=== PATIENT | male | born 1975 | race American Indian/Alaskan Native ===

== ENCOUNTER 2016-09-23 11:56 | Emergency (ER) | payer OTHER ==
[2016-09-23 12:07] VITALS: TEMP 98.7
[2016-09-23 12:08] VITALS: BMI 33.2
--- NOTE | 2016-09-23 12:44 | ED PDOC ---
HPI: Chest Pain Time Seen by Provider: 09/23/16 12:28 Chief Complaint (Nursing): Chest Pain Chief Complaint (Provider): Chest Pain History Per: Patient History/Exam Limitations: no limitations Onset/Duration Of Symptoms: Mins Current Symptoms Are (Timing): Better Severity: Moderate Quality: Pressure, "Pain" Associated Symptoms: Dyspnea Modifying Factors: None Exacerbating Factors: None Alleviating Factors: None Additional Complaint(s): Patient is a 40 year old male with a history of PTSD, presents to ED for evaluation of left sided chest pain that began 1hour TOE [employer] STITCHDOWNS and resolved after 40 minutes. Patient states pain occurred while taking a shower associated with SOB , dizziness and pain to the left arm and leg. Patient denies nausea. Patient also reports that he felt like his heart was racing. Patient states similar pain in April 2016, admitted for 24 hour observation but admits that he was under the influence of alcohol and cocaine at that time. Denies drug use for 2 months. Past Medical History Reviewed: Historical Data, Nursing Documentation, Vital Signs Vital Signs: Last Vital Signs Temp 98.7 F 09/23/16 12:06 Pulse 79 09/23/16 16:23 Resp 16 09/23/16 16:23 BP 118/80 09/23/16 16:23 Pulse Ox 100 09/23/16 16:23 - Medical History PMH: Anxiety, Depression, Post Traumatic Stress Disorder Denies: Diabetes, Hepatitis, HIV, HTN, Chronic Kidney Disease, Seizures, Sexually Transmitted Disease - Surgical History Surgical History: Appendectomy - Family History Family History: States: Unknown Family Hx - Living Arrangements Living Arrangements: With Family - Social History Current smoker - smoking cessation education provided: Yes Alcohol: None Drugs: Denies - Immunization History Hx Tetanus Toxoid Vaccination: No Hx Influenza Vaccination: No Hx Pneumococcal Vaccination: No - Home Medications Home Medications: Ambulatory Orders Medication Instructions Recorded No Known Home Med 07/24/15 - Allergies Allergies/Adverse Reactions: Allergies Allergy/AdvReac Type Severity Reaction Status Date / Time No Known Allergies Allergy Verified 09/23/16 12:27 Review of Systems ROS Statement: Except As Marked, All Systems Reviewed And Found Negative Constitutional: Negative for: Fever, Weakness Eyes: Negative for: Vision Change Cardiovascular: Positive for: Chest Pain, Palpitations, Light Headedness Respiratory: Positive for: Shortness of Breath Gastrointestinal: Negative for: Nausea, Vomiting Musculoskeletal: Negative for: Neck Pain, Back Pain Skin: Negative for: Rash Neurological: Negative for: Weakness Physical Exam - Reviewed Nursing Documentation Reviewed: Yes Vital Signs Reviewed: Yes - Physical Exam Appears: Positive for: Non-toxic, No Acute Distress Skin: Positive for: Normal Color, Warm Eye Exam: Positive for: Normal appearance Neck: Positive for: Normal, Painless ROM Cardiovascular/Chest: Positive for: Regular Rate, Rhythm. Negative for: JVD, Murmur Respiratory: Positive for: Normal Breath Sounds. Negative for: Respiratory Distress Back: Positive for: Normal Inspection Extremity: Positive for: Normal ROM. Negative for: Pedal Edema, Calf Tenderness Neurologic/Psych: Positive for: Alert, Oriented - Laboratory Results Result Diagrams: 09/23/16 12:55 09/23/16 12:55 - ECG ECG Rhythm: Positive for: Normal QRS O2 Sat by Pulse Oximetry: 96 (RA) Pulse Ox Interpretation: Normal Medical Decision Making Medical Decision Making: Time: 1245 Initial impression: Chest pain r/o ACS Initial plan: -- EKG -- CMP -- UDS -- Troponin -- CBC -- CXR -- ASA and NSF -- Cardiac monitoring Scribe Attestation: Documented by Hillary Pineda acting as a scribe for Paulette Farfan MD MD Scribe Attestation: All medical record entries made by the Scribe were at my direction and personally dictated by me. I have reviewed the chart and agree that the record accurately reflects my personal performance of the history, physical exam, medical decision making, and the department course for this patient. I have also personally directed, reviewed, and agree with the discharge instructions and disposition. 5.00p - patient h/o chest pain not consistent with cardiac pain. He has had similar pain in April. He was admitted to observation and was discharged. He did not followup in the outpatient. Patient was showering when the pain started. He has a h/o PTSD and panic attacks. He has been asymptomatic Disposition - Clinical Impression Clinical Impression: Chest pain - Patient ED Disposition Is Patient to be Admitted: No Doctor Will See Patient In The: Office Counseled Patient/Family Regarding: Diagnosis, Need For Followup - Disposition Referrals: [facility] [Outside] [facility] [Outside] [facility] [Outside] Disposition: Routine/Home Disposition Time: 16:57 Condition: STABLE Instructions: Chest Pain (ED) - POA Present On Arrival: None
[2016-09-23] MEDS ORDERED: Sodium Chloride 0.9% 1,000 ML IV SCH (13:00)
[2016-09-23 13:20] LABS: BASO # 0.1 K/uL (0.0-0.2); BASO % 0.9 % (0.0-2.0); EOS # 0.1 K/uL (0.0-0.7); EOS % 1.4 % (0.0-4.0); HEMATOCRIT 43.1 % (35.0-51.0); LYMPH # 1.2 K/uL (1.0-4.3); LYMPH % 15.9 % (20.0-40.0); MEAN CELL VOLUME 92.9 fl (80.0-94.0); MEAN CORPUSCULAR HEMOGLOBIN 30.4 pg (27.0-31.0); MEAN CORPUSCULAR HGB CONC 32.7 g/dL (33.0-37.0); MEAN PLATELET VOLUME 6.9 fl (7.2-11.7); MONO # 0.7 K/uL (0.0-0.8); MONO % 8.4 % (0.0-10.0); NEUT # 5.7 K/uL (1.8-7.0); NEUT % 73.4 % (50.0-75.0); NRBC % 0.1 % (0.0-0.0); RED CELL DISTRIBUTION WIDTH 13.7 % (11.5-14.5); WHITE BLOOD COUNT 7.8 K/uL (4.8-10.8)
[2016-09-23 13:32] LABS: ALB/GLOB RATIO 1.4 (1.0-2.1); ALKALINE PHOSPHATASE 46 U/L (38-126); ALT/SGPT 35 U/L (21-72); AST/SGOT 19 U/L (17-59); BILIRUBIN,TOTAL 0.3 mg/dl (0.2-1.3); BLOOD UREA NITROGEN 14 mg/dl (9-20); CALCIUM 9.8 mg/dL (8.4-10.2); CARBON DIOXIDE 27 mmol/L (22-30); CHLORIDE 106 mmol/L (98-107); GFR AFRICAN-AMERICAN > 60; GLUCOSE,RANDOM 99 mg/dL (75-110); POTASSIUM 4.5 MMOL/L (3.6-5.0); SODIUM 143 mmol/l (132-148); TOTAL PROTEIN 7.3 G/DL (6.3-8.2)
--- NOTE | 2016-09-23 13:37 | RAD ---
HISTORY: chest pain COMPARISON: Chest x-ray performed 04/05/16 TECHNIQUE: Chest PA and lateral FINDINGS: LUNGS: No focal consolidation. Please note that chest x-ray has limited sensitivity for the detection of pulmonary masses. PLEURA: No significant pleural effusion identified. No definite pneumothorax . CARDIOVASCULAR: The cardiomediastinal silhouette appears within normal limits of size. OSSEOUS STRUCTURES: No acute osseous abnormality identified. VISUALIZED UPPER ABDOMEN: Unremarkable. OTHER FINDINGS: None. IMPRESSION: No focal consolidation, significant pleural effusion, or definite pneumothorax identified.
[2016-09-23 16:24] VITALS: BP 118/80; PULSE 79; RESP 16
[2016-09-23 17:01] VITALS: O2SAT 96
--- NOTE | 2016-09-24 10:57 | CARD ---
APPROVED REPORT EKG Measurement Heart [id number] <Conclusion> Normal sinus rhythm normal ECG
== END 2016-09-23 17:22 | disposition home or self-care (01) ==
LOC: H.ER 11:56
DX: R07.9 Chest pain, unspecified (principal); F43.10 Post-traumatic stress disorder, unspecified; F41.9 Anxiety disorder, unspecified

== ENCOUNTER 2016-10-30 19:51 | Emergency (ER) | payer SELFPAY ==
[2016-10-30 19:52] VITALS: BMI 33.2
[2016-10-30 20:08] VITALS: RESP 16; TEMP 98.5
--- NOTE | 2016-10-30 20:50 | ED PDOC ---
HPI: Chest Pain Time Seen by Provider: 10/30/16 20:41 Chief Complaint (Nursing): Abdominal Pain Chief Complaint (Provider): CP History Per: Patient Additional Complaint(s): 41 yo male, no PMH, presents to ED with complaints of chest pain, shortness of breath, chest tightness and upper extremity paresthesias that developed after he was screaming at his kids around 17:30. Pt reports that the episode lasted ~ 20 minutes. No chest pain or SOB at this time. Past Medical History Reviewed: Nursing Documentation, Vital Signs Vital Signs: Last Vital Signs Temp 98.5 F 10/30/16 20:04 Pulse 76 10/30/16 21:08 Resp 16 10/30/16 21:08 BP 155/87 H 10/30/16 21:08 Pulse Ox 100 10/30/16 21:08 - Medical History PMH: Anxiety, Depression, Post Traumatic Stress Disorder Denies: Diabetes, Hepatitis, HIV, HTN, Chronic Kidney Disease, Seizures, Sexually Transmitted Disease - Surgical History Surgical History: Appendectomy - Family History Family History: States: Unknown Family Hx - Immunization History Hx Tetanus Toxoid Vaccination: No Hx Influenza Vaccination: No Hx Pneumococcal Vaccination: No - Home Medications Home Medications: Ambulatory Orders Medication Instructions Recorded No Known Home Med 07/24/15 - Allergies Allergies/Adverse Reactions: Allergies Allergy/AdvReac Type Severity Reaction Status Date / Time No Known Allergies Allergy Verified 09/23/16 12:27 CATHY Risk Score for UA/NSTEMI - CATHY Risk Score Age > 64: NO 3 or more CAD Risk Factors: NO Known CAD (Stenosis greater than 50%): NO Aspirin use in past 7 days: NO Severe Angina: NO EKG ST changes greater than 0.5mm: NO Positive Cardiac Marker: NO CATHY Score: 0 Risk %: 5% Wells Criteria for PE - Wells Criteria for Pulmonary Embolism Clinical Signs and Symptoms of DVT: No P.E is #1 Diagnosis, or Equally Likely: No Heart Rate >100: No Immobilization at least 3 days;Surgery previous 4 weeks: No Previous, objectively diagnosed PE or DVT: No Hemoptysis: No Malignancy w/treatment within 6 months, or palliative: No Total Score: 0 Review of Systems ROS Statement: Except As Marked, All Systems Reviewed And Found Negative Cardiovascular: Positive for: Chest Pain Respiratory: Positive for: Shortness of Breath Physical Exam - Reviewed Nursing Documentation Reviewed: Yes Vital Signs Reviewed: Yes - Physical Exam Appears: Positive for: Well, Non-toxic, No Acute Distress Head Exam: Positive for: ATRAUMATIC, NORMAL INSPECTION, NORMOCEPHALIC Skin: Positive for: Normal Color, Warm, DRY Eye Exam: Positive for: EOMI, Normal appearance, PERRL ENT: Positive for: Normal ENT Inspection Neck: Positive for: Normal, Painless ROM Cardiovascular/Chest: Positive for: Regular Rate, Rhythm Respiratory: Positive for: CNT, Normal Breath Sounds Gastrointestinal/Abdominal: Positive for: Normal Exam, Bowel Sounds, Soft Back: Positive for: Normal Inspection Extremity: Positive for: Normal ROM Neurologic/Psych: Positive for: Alert, Oriented - Laboratory Results Result Diagrams: 10/30/16 21:00 10/30/16 21:00 - ECG O2 Sat by Pulse Oximetry: 98 Medical Decision Making Medical Decision Making: EKG: NSR at 80 bpm, no axis deviation, no acute ST changes, as read by BRENNA Ibarra placed on patient monitor, vitals stable. Labs resulted and re-reviewed with Pt who demonstrated full understanding Pt doing well on re-eval, no complaint sof chest pain, SOB, or upper extremity paresthesias. Disposition - Clinical Impression Clinical Impression: Chest pain, Panic attack - Patient ED Disposition Is Patient to be Admitted: No - Disposition Disposition: Routine/Home Disposition Time: 23:00 Condition: STABLE Instructions: Panic Attack (ED) - POA Present On Arrival: None
[2016-10-30 21:08] VITALS: BP 155/87; PULSE 76
[2016-10-30 21:12] LABS: BASO # 0.1 K/uL (0.0-0.2); BASO % 0.8 % (0.0-2.0); EOS # 0.1 K/uL (0.0-0.7); LYMPH # 1.6 K/uL (1.0-4.3); MEAN CELL VOLUME 91.2 fl (80.0-94.0); MEAN CORPUSCULAR HEMOGLOBIN 30.8 pg (27.0-31.0); MEAN CORPUSCULAR HGB CONC 33.8 g/dL (33.0-37.0); MEAN PLATELET VOLUME 6.7 fl (7.2-11.7); MONO # 0.8 K/uL (0.0-0.8); NEUT # 6.3 K/uL (1.8-7.0); NEUT % 71.2 % (50.0-75.0); NRBC % 0.1 % (0.0-0.0); RED CELL DISTRIBUTION WIDTH 13.5 % (11.5-14.5); WHITE BLOOD COUNT 8.9 K/uL (4.8-10.8)
[2016-10-30 21:22] LABS: ALB/GLOB RATIO 1.2 (1.0-2.1); ALKALINE PHOSPHATASE 47 U/L (38-126); ALT/SGPT 39 U/L (21-72); AST/SGOT 25 U/L (17-59); BILIRUBIN,TOTAL 0.5 mg/dl (0.2-1.3); BLOOD UREA NITROGEN 17 mg/dl (9-20); CALCIUM 10.2 mg/dL (8.4-10.2); CARBON DIOXIDE 31 mmol/L (22-30); CHLORIDE 100 mmol/L (98-107); GFR AFRICAN-AMERICAN > 60; GLUCOSE,RANDOM 104 mg/dL (75-110); POTASSIUM 4.2 MMOL/L (3.6-5.0); SODIUM 140 mmol/l (132-148); TOTAL PROTEIN 7.9 G/DL (6.3-8.2)
[2016-10-30 21:31] LABS: PARTIAL THROMBOPLASTIN TIME 30.2 SECONDS (23.3-32.5)
[2016-10-30 22:53] VITALS: O2SAT 98
--- NOTE | 2016-10-31 09:01 | RAD ---
HISTORY: CP COMPARISON: Comparison is made to the previous study dated 09/23/2016 TECHNIQUE: Chest PA and lateral FINDINGS: LUNGS: No active pulmonary disease. PLEURA: No significant pleural effusion identified. No pneumothorax apparent. CARDIOVASCULAR: Normal. OSSEOUS STRUCTURES: No significant abnormalities. VISUALIZED UPPER ABDOMEN: Normal. OTHER FINDINGS: None. IMPRESSION: No active disease.
--- NOTE | 2016-10-31 10:13 | CARD ---
APPROVED REPORT EKG Measurement Heart [id number] <Conclusion> Normal sinus rhythm Minimal voltage criteria for LVH, may be normal variant Borderline ECG
== END 2016-10-30 23:08 | disposition home or self-care (01) ==
LOC: H.ER 19:51
DX: R07.9 Chest pain, unspecified (principal); F41.0 Panic disorder [episodic paroxysmal anxiety]; F43.10 Post-traumatic stress disorder, unspecified; R20.2 Paresthesia of skin; F41.9 Anxiety disorder, unspecified

== ENCOUNTER 2016-11-22 21:24 | Emergency (ER) | payer SELFPAY ==
[2016-11-22 21:25] VITALS: BMI 33.2
[2016-11-22 21:35] VITALS: BP 161/101; PULSE 83; RESP 16; TEMP 98; O2SAT 100
[2016-11-22 22:13] LABS: BASO # 0.1 K/uL (0.0-0.2); BASO % 0.7 % (0.0-2.0); EOS # 0.1 K/uL (0.0-0.7); EOS % 1.5 % (0.0-4.0); HEMATOCRIT 43.6 % (35.0-51.0); LYMPH % 24.2 % (20.0-40.0); MEAN CELL VOLUME 92.1 fl (80.0-94.0); MEAN CORPUSCULAR HEMOGLOBIN 30.3 pg (27.0-31.0); MEAN CORPUSCULAR HGB CONC 32.9 g/dL (33.0-37.0); MEAN PLATELET VOLUME 7.2 fl (7.2-11.7); MONO # 0.6 K/uL (0.0-0.8); MONO % 7.9 % (0.0-10.0); NEUT # 5.4 K/uL (1.8-7.0); NEUT % 65.7 % (50.0-75.0); RED CELL DISTRIBUTION WIDTH 13.3 % (11.5-14.5); WHITE BLOOD COUNT 8.3 K/uL (4.8-10.8)
[2016-11-22 22:22] LABS: ALB/GLOB RATIO 1.5 (1.0-2.1); ALKALINE PHOSPHATASE 45 U/L (38-126); ALT/SGPT 40 U/L (21-72); AST/SGOT 26 U/L (17-59); BILIRUBIN,TOTAL 0.4 mg/dl (0.2-1.3); BLOOD UREA NITROGEN 12 mg/dl (9-20); CALCIUM 10.1 mg/dL (8.4-10.2); CARBON DIOXIDE 31 mmol/L (22-30); CHLORIDE 100 mmol/L (98-107); GFR AFRICAN-AMERICAN > 60; GLUCOSE,RANDOM 115 mg/dL (75-110); POTASSIUM 4.5 MMOL/L (3.6-5.0); SODIUM 141 mmol/l (132-148); TOTAL PROTEIN 8.1 G/DL (6.3-8.2)
[2016-11-22 22:36] LABS: PARTIAL THROMBOPLASTIN TIME 19.4 SECONDS (23.3-32.5)
--- NOTE | 2016-11-22 23:32 | ED PDOC ---
HPI: Chest Pain Time Seen by Provider: 11/22/16 21:41 Chief Complaint (Nursing): Chest Pain Chief Complaint (Provider): chest pain History Per: Patient History/Exam Limitations: no limitations Onset/Duration Of Symptoms: Hrs (2) Current Symptoms Are (Timing): Gone Now Additional Complaint(s): 41yo male with PMHx including anxiety, depression, PTSD presents to the ED with c/o substernal chest pain x 2 hours that began while at rest. On arrival to ED chest pain has resolved. Denies n/v, diaphoresis, SOB. Of note, patient has multiple visits for same complaint with multiple negative workups. Has appointment with his doctor [facility] in 1 week. Upon chart review, patient has hx of cocaine abuse in the past but denies cocaine use today. Past Medical History Reviewed: Historical Data, Nursing Documentation, Vital Signs Vital Signs: Last Vital Signs Temp 98.0 F 11/22/16 21:32 Pulse 83 11/22/16 21:32 Resp 16 11/22/16 21:32 BP 161/101 H 11/22/16 21:32 Pulse Ox 100 11/22/16 23:35 - Medical History PMH: Anxiety, Depression, Post Traumatic Stress Disorder Denies: Diabetes, Hepatitis, HIV, HTN, Chronic Kidney Disease, Seizures, Sexually Transmitted Disease - Surgical History Surgical History: Appendectomy - Family History Family History: States: No Known Family Hx - Social History Current smoker - smoking cessation education provided: No (quit 60 days ago ) Alcohol: None Drugs: Denies - Immunization History Hx Tetanus Toxoid Vaccination: No Hx Influenza Vaccination: No Hx Pneumococcal Vaccination: No - Home Medications Home Medications: Ambulatory Orders Medication Instructions Recorded No Known Home Med 07/24/15 - Allergies Allergies/Adverse Reactions: Allergies Allergy/AdvReac Type Severity Reaction Status Date / Time No Known Allergies Allergy Verified 11/22/16 21:32 Review of Systems ROS Statement: Except As Marked, All Systems Reviewed And Found Negative Constitutional: Positive for: Other (no diaphoresis ) Cardiovascular: Positive for: Chest Pain Respiratory: Negative for: Shortness of Breath Gastrointestinal: Negative for: Nausea, Vomiting Physical Exam - Reviewed Nursing Documentation Reviewed: Yes Vital Signs Reviewed: Yes - Physical Exam Appears: Positive for: Well, No Acute Distress Head Exam: Positive for: ATRAUMATIC, NORMAL INSPECTION, NORMOCEPHALIC Skin: Positive for: Normal Color, Warm, Dry Eye Exam: Positive for: Normal appearance, EOMI, PERRL ENT: Positive for: Normal ENT Inspection Neck: Positive for: Normal, Painless ROM, Supple Cardiovascular/Chest: Positive for: Regular Rate, Rhythm. Negative for: Murmur , Tachycardia Respiratory: Positive for: Normal Breath Sounds. Negative for: Wheezing, Respiratory Distress Gastrointestinal/Abdominal: Positive for: Normal Exam, Soft. Negative for: Tenderness Back: Positive for: Normal Inspection. Negative for: L CVA Tenderness, R CVA Tenderness Extremity: Positive for: Normal ROM. Negative for: Deformity, Swelling Neurologic/Psych: Positive for: Alert, Oriented. Negative for: Motor/Sensory Deficits - Laboratory Results Result Diagrams: 11/22/16 22:00 11/22/16 22:00 - ECG O2 Sat by Pulse Oximetry: 100 Pulse Ox Interpretation: Normal (RA) Medical Decision Making Medical Decision Makin: Impression: 41yo male w/ chest pain Plan: Labs EKG IVF reassess 005: Labs reviewed, no clinically significant abnormalities. Patient remains stable. Encouraged f/u w/ his doctor in 1 week as scheduled. Dx: atypical chest pain stable Scribe Attestation: Documented by Alexis Bennett acting as a scribe for Rakesh Awad MD. Provider Scribe Attestation: All medical record entries made by the Scribe were at my direction and personally dictated by me. I have reviewed the chart and agree that the record accurately reflects my personal performance of the history, physical exam, medical decision making, and the department course for this patient. I have also personally directed, reviewed, and agree with the discharge instructions and disposition. Disposition - Clinical Impression Clinical Impression: Atypical chest pain - Patient ED Disposition Is Patient to be Admitted: No Counseled Patient/Family Regarding: Studies Performed, Diagnosis, Need For Followup - Disposition Disposition: Routine/Home Disposition Time: 00:55 Condition: STABLE Instructions: Noncardiac Chest Pain (ED)
[2016-11-22 23:47] LABS: RBC URINE 1 /hpf (0-3); URINE BILIRUBIN NEGATIVE (NEGATIVE); URINE BLOOD NEGATIVE (NEGATIVE); URINE COLOR COLORLESS (YELLOW); URINE GLUCOSE (UA) NEG (Normal); URINE KETONE NEGATIVE (NEGATIVE); URINE LEUKOCYTE ESTERASE NEG Leu/uL (Negative); URINE PROTEIN NEGATIVE (NEGATIVE); URINE UROBILINOGEN 0.2-1.0 mg/dL (0.2-1.0); WBC URINE < 1 /hpf (0-5)
--- NOTE | 2016-11-25 19:04 | CARD ---
APPROVED REPORT EKG Measurement Heart [id number] [id number] <Conclusion> Normal sinus rhythm Nonspecific T wave abnormality Abnormal ECG
== END 2016-11-23 00:28 | disposition home or self-care (01) ==
LOC: H.ER 21:24
DX: R07.89 Other chest pain (principal); F41.9 Anxiety disorder, unspecified; F32.9 Major depressive disorder, single episode, unspecified; F43.10 Post-traumatic stress disorder, unspecified
CPT/HCPCS: 80053; 81003; 84484; 85025; 85610; 85730; 93005; 99283; G0480

== ENCOUNTER 2017-09-21 13:23 | Emergency (ER) | payer OTHER ==
[2017-09-21 13:23] VITALS: BMI 33.2
[2017-09-21 13:37] VITALS: BP 133/88; PULSE 93; RESP 18; TEMP 98.8; O2SAT 98
--- NOTE | 2017-09-21 14:04 | ED PDOC ---
HPI: General Adult Time Seen by Provider: 09/21/17 13:39 Chief Complaint (Nursing): ENT Problem Chief Complaint (Provider): Dental Pain History Per: Patient History/Exam Limitations: no limitations Onset/Duration Of Symptoms: Days (x2) Current Symptoms Are (Timing): Still Present Additional Complaint(s): 41 year old male presents to the ED complaining of pain to right lower mandible teeth and swelling to right side of neck for 2 days. He denies any fever or chills. Patient states he is having difficulty chewing secondary to the pain. No pain medications taken prior to arrival. Patient has not seen a dentist yet. He is tolerating liquids and solids. PMD: none Past Medical History Reviewed: Historical Data, Nursing Documentation, Vital Signs Vital Signs: Last Vital Signs Temp 98.8 F 09/21/17 13:34 Pulse 93 H 09/21/17 13:34 Resp 18 09/21/17 13:34 BP 133/88 09/21/17 13:34 Pulse Ox 98 09/21/17 14:08 - Medical History PMH: Anxiety, Depression, HTN, Post Traumatic Stress Disorder - Surgical History Surgical History: Appendectomy - Family History Family History: States: No Known Family Hx - Living Arrangements Living Arrangements: With Family - Social History Current smoker - smoking cessation education provided: Yes Alcohol: None Drugs: Denies - Home Medications Home Medications: Ambulatory Orders Medication Instructions Recorded Clindamycin [Cleocin] 300 mg PO TID #21 cap 09/21/17 Ibuprofen [Motrin Tab] 800 mg PO Q8 PRN #20 tab 09/21/17 - Allergies Allergies/Adverse Reactions: Allergies Allergy/AdvReac Type Severity Reaction Status Date / Time No Known Allergies Allergy Verified 09/21/17 13:32 Review of Systems ROS Statement: Except As Marked, All Systems Reviewed And Found Negative Constitutional: Negative for: Fever, Chills ENT: Positive for: Other (dental pain, lump to right side of neck) Physical Exam - Reviewed Nursing Documentation Reviewed: Yes Vital Signs Reviewed: Yes - Physical Exam Appears: Positive for: Well, Non-toxic, No Acute Distress Head Exam: Positive for: ATRAUMATIC, NORMAL INSPECTION, NORMOCEPHALIC Skin: Positive for: Normal Color. Negative for: Rash Eye Exam: Positive for: Normal appearance ENT: Positive for: Other (Fractured molar noted to right lower mandible with surrounding soft tissue swelling consistent with dental abscess, no active intraoral drainage, airway patent, uvula midline) Neck: Positive for: Supple Cardiovascular/Chest: Positive for: Regular Rate, Rhythm Respiratory: Positive for: Normal Breath Sounds. Negative for: Respiratory Distress Lymphatic: Positive for: Adenopathy (right submental lymphadenopathy) Neurologic/Psych: Positive for: Alert, Oriented - ECG O2 Sat by Pulse Oximetry: 98 (RA) Pulse Ox Interpretation: Normal Medical Decision Making Medical Decision Making: Initial Impression: 41 y/o with dental abscess Time: 14:00 Plan: * 600 mg Motrin PO in ED Patient will discharged with rx clindamycin and motrin. Counseled regarding exam findings and diagnosis, patient instructed to follow up with dentist in 2- 3 days without fail. There is agreement to discharge plan. Return if symptoms persist or worsen. Scribe Attestation: Documented by Henrietta Key, acting as a scribe for Miladis Wallace PA-C Provider Scribe Attestation: All medical record entries made by the Scribe were at my direction and personally dictated by me. I have reviewed the chart and agree that the record accurately reflects my personal performance of the history, physical exam, medical decision making, and the department course for this patient. I have also personally directed, reviewed, and agree with the discharge instructions and disposition. Disposition - Clinical Impression Clinical Impression: Dental abscess, Pain, dental - Patient ED Disposition Is Patient to be Admitted: No Counseled Patient/Family Regarding: Diagnosis, Need For Followup, Rx Given - Disposition Referrals: [facility] [Outside] Disposition: Routine/Home Disposition Time: 14:09 Condition: STABLE Additional Instructions: TAKE RX MEDS DIRECTED. FOLLOW UP IN 2-3 DAYS WITH DENTIST. Prescriptions: Clindamycin [Cleocin] 300 mg PO TID #21 cap Ibuprofen [Motrin Tab] 800 mg PO Q8 PRN #20 tab PRN Reason: Pain, Moderate (4-7) Instructions: Dental Pain (DC), Tooth Abscess (DC) Forms: [facility] (Tajik)
== END 2017-09-21 14:31 | disposition home or self-care (01) ==
LOC: H.ER 13:23
DX: K04.7 Periapical abscess without sinus (principal)

== ENCOUNTER 2018-02-12 00:39 | Emergency (ER) | payer MEDICAID ==
[2018-02-12 00:40] VITALS: BMI 33.2
--- NOTE | 2018-02-12 01:38 | ED PDOC ---
HPI: SOB/CHF/COPD Time Seen by Provider: 02/12/18 00:57 Chief Complaint (Nursing): Shortness Of Breath Chief Complaint (Provider): CP History Per: Patient, Family Additional Complaint(s): 42 yo male, PMH of HTN, Anxiety, presents to ED with complaints of acute onset of palpitations, SOB, numbness to upper extremities that developed while watching a movie tonight, after eating [employer]. Pt reports that he has a history of panic attacks and anxiety that have presented similar to tonights event; however, symptoms usually resolve quickly and tonight they lasted 2 hours. At this time Pt reports feeling improved at this time Past Medical History Reviewed: Nursing Documentation, Vital Signs Vital Signs: Last Vital Signs Temp 97.9 F 02/12/18 00:57 Pulse 84 02/12/18 01:56 Resp 18 02/12/18 01:56 BP 136/87 02/12/18 01:56 Pulse Ox 100 02/12/18 01:56 - Medical History PMH: Anxiety, Depression, HTN, Post Traumatic Stress Disorder Denies: Diabetes, Hepatitis, HIV, Chronic Kidney Disease, Seizures, Sexually Transmitted Disease - Surgical History Surgical History: Appendectomy - Family History Family History: States: Unknown Family Hx - Living Arrangements Living Arrangements: With Family - Social History Current smoker - smoking cessation education provided: Yes Alcohol: Social Drugs: Denies - Immunization History Hx Tetanus Toxoid Vaccination: No Hx Influenza Vaccination: No Hx Pneumococcal Vaccination: No - Home Medications Home Medications: Ambulatory Orders Medication Instructions Recorded Clindamycin [Cleocin] 300 mg PO TID #21 cap 09/21/17 Ibuprofen [Motrin Tab] 800 mg PO Q8 PRN #20 tab 09/21/17 - Allergies Allergies/Adverse Reactions: Allergies Allergy/AdvReac Type Severity Reaction Status Date / Time No Known Allergies Allergy Verified 09/21/17 13:32 Wells Criteria for PE - Wells Criteria for Pulmonary Embolism Clinical Signs and Symptoms of DVT: No P.E is #1 Diagnosis, or Equally Likely: No Heart Rate >100: Yes Immobilization at least 3 days;Surgery previous 4 weeks: No Previous, objectively diagnosed PE or DVT: No Hemoptysis: No Malignancy w/treatment within 6 months, or palliative: No Total Score: 1.5 Review of Systems ROS Statement: Except As Marked, All Systems Reviewed And Found Negative Cardiovascular: Positive for: Chest Pain, Palpitations Respiratory: Positive for: Shortness of Breath Physical Exam - Reviewed Nursing Documentation Reviewed: Yes Vital Signs Reviewed: Yes - Physical Exam Appears: Positive for: Well, Non-toxic, No Acute Distress Head Exam: Positive for: ATRAUMATIC, NORMAL INSPECTION, NORMOCEPHALIC Skin: Positive for: Normal Color, Warm, DRY Eye Exam: Positive for: EOMI, Normal appearance, PERRL ENT: Positive for: Normal ENT Inspection Neck: Positive for: Normal, Painless ROM Cardiovascular/Chest: Positive for: Regular Rate, Rhythm Respiratory: Positive for: CNT, Normal Breath Sounds Gastrointestinal/Abdominal: Positive for: Normal Exam, Soft Back: Positive for: Normal Inspection Extremity: Positive for: Normal ROM Neurologic/Psych: Positive for: Alert, Oriented - Laboratory Results Result Diagrams: 02/12/18 02:05 02/12/18 02:05 - ECG O2 Sat by Pulse Oximetry: 98 Medical Decision Making Medical Decision Making: EKG: SB at 53 bpm, no axis deviation, no acute ST changes, as read by ED MD IV access established and diagnostics ordered Pt placed on telemetry monitor, vitals stable. P: 72 BP repeat: 138/88 Pt doing well on re-eval, no complaints of palpitations, chest pain, SOB or upper extremity numbness. Pt asking to go home. Advised he will follow up in [place] hospital Disposition - Clinical Impression Clinical Impression: Chest pain, Panic attack - Patient ED Disposition Is Patient to be Admitted: No - Disposition Disposition: Routine/Home Disposition Time: 04:02 Condition: GOOD Instructions: Panic Disorder (DC), Chest Pain That Is Not Caused by the Heart ( DC) Forms: [employer] (Maori)
[2018-02-12 02:09] LABS: BASO # 0.1 K/uL (0.0-0.2); BASO % 0.7 % (0.0-2.0); EOS # 0.1 K/uL (0.0-0.7); EOS % 1.5 % (0.0-4.0); HEMOGLOBIN 13.8 g/dL (12.0-18.0); LYMPH # 1.7 K/uL (1.0-4.3); LYMPH % 21.9 % (20.0-40.0); MEAN CELL VOLUME 93.2 fl (80.0-94.0); MEAN CORPUSCULAR HEMOGLOBIN 31.1 pg (27.0-31.0); MEAN CORPUSCULAR HGB CONC 33.3 g/dL (33.0-37.0); MONO # 0.7 K/uL (0.0-0.8); MONO % 9.2 % (0.0-10.0); NEUT # 5.3 K/uL (1.8-7.0); NEUT % 66.7 % (50.0-75.0); RBC 4.44 Mil/uL (4.40-5.90); RED CELL DISTRIBUTION WIDTH 13.6 % (11.5-14.5)
[2018-02-12 02:22] LABS: ALB/GLOB RATIO 1.4 (1.0-2.1); ALBUMIN 3.9 g/dL (3.5-5.0); ALT/SGPT 48 U/L (21-72); AST/SGOT 27 U/L (17-59); BLOOD UREA NITROGEN 12 mg/dl (9-20); CALCIUM 9.6 mg/dL (8.4-10.2); GFR AFRICAN-AMERICAN > 60; GFR NON-AFRICAN AMERICAN > 60
[2018-02-12 02:23] LABS: PROTHROMBIN TIME 10.6 Seconds (9.8-13.1)
[2018-02-12 02:26] LABS: PARTIAL THROMBOPLASTIN TIME 34.2 Seconds (25.6-37.1)
[2018-02-12 02:27] VITALS: RESP 18
[2018-02-12 02:31] LABS: D DIMER < 200 ng/mlDDU (0-230)
[2018-02-12 03:06] LABS: SQUAMOUS EPITHIAL < 1 /hpf (0-5); URINE BILIRUBIN NEGATIVE (NEGATIVE); URINE BLOOD NEGATIVE (NEGATIVE); URINE CLARITY SLIGHTY-CLOUDY (Clear); URINE COLOR YELLOW (YELLOW); URINE GLUCOSE (UA) NEG (Normal); URINE LEUKOCYTE ESTERASE NEG Leu/uL (Negative); URINE PROTEIN 100 mg/dL (NEGATIVE); URINE UROBILINOGEN 0.2-1.0 mg/dL (0.2-1.0)
[2018-02-12 03:31] VITALS: O2SAT 98
[2018-02-12 04:56] VITALS: BP 128/78; PULSE 81; TEMP 98.3
--- NOTE | 2018-02-12 07:56 | CARD ---
APPROVED REPORT Date of service: 02/12/2018 EKG Measurement Heart [id number] [place] [id number] <Conclusion> Sinus tachycardia Moderate voltage criteria for LVH, may be normal variant T wave abnormality, consider inferior ischemia Abnormal ECG
--- NOTE | 2018-02-12 08:38 | RAD ---
HISTORY: COMPARISON: 10/30/2016. TECHNIQUE: Chest PA and lateral FINDINGS: LINES AND TUBES: None. LUNG AND PLEURA: The lungs are well inflated and clear. No pleural effusion or pneumothorax. HEART AND MEDIASTINUM: The heart is not enlarged. The hilar and mediastinal contours are within normal limits. SKELETAL STRUCTURES: The bony structures are within normal limits for the patient's age. VISUALIZED UPPER ABDOMEN: Normal. OTHER FINDINGS: None. IMPRESSION: No active pulmonary disease.
== END 2018-02-12 03:28 | disposition home or self-care (01) ==
LOC: H.ER 00:39
DX: R07.89 Other chest pain (principal); F41.0 Panic disorder [episodic paroxysmal anxiety]; I10 Essential (primary) hypertension; F43.10 Post-traumatic stress disorder, unspecified